=== PATIENT | male | born 1940 | race Caucasian/White ===

== ENCOUNTER → 2019-02-09 14:17 | Outpatient (CLI) | payer MEDICARE, OTHER, SELFPAY ==
[2019-02-09 15:42] LABS: PSA,Total - Annual Screen 0.08 ng/mL (0.00-4.00)
== END ==
PROVIDERS: Family Provider Family Medicine; PCP Family Medicine; Referring Provider Urology; Visit Provider Urology
DX: Z12.5 Encounter for screening for malignant neoplasm of prostate (principal)
CPT/HCPCS: 36415; 84153; G0103

== ENCOUNTER 2021-09-01 09:22 | Outpatient (CLI) | payer MEDICARE, OTHER, SELFPAY ==
--- NOTE | 2021-09-01 09:26 | RAD_ITS ---
STUDY: X-RAY CHEST REASON FOR EXAM: Male, 80 years old. COUGH TECHNIQUE: PA and lateral views of the chest. COMPARISON: None. FINDINGS: There is hyperinflation of the lungs consistent with chronic obstructive lung disease (COPD). There is no demonstrated pleural abnormality. Normal size heart. Normal mediastinum and sarath. Normal visualized pulmonary arteries. Normal visualized aortic arch and descending thoracic aorta. Normal visualized thoracic spine. Normal visualized ribs, clavicles, and shoulders. There is no demonstrated abnormality of the visualized soft tissue structures of the upper abdomen. RAD/Chest PA and Lateral IMPRESSION: Emphysema without pneumonia or atelectasis. Electronically Signed: Jose Merino MD at 17:14 EDT ,
== END 2021-09-01 23:59 | disposition home or self-care (01) ==
LOC: MTRAD 09:24
PROVIDERS: PCP Family Medicine; Referring Provider Family Medicine; Visit Provider Family Medicine
DX: J43.9 Emphysema, unspecified (principal)
CPT/HCPCS: 71046

== ENCOUNTER 2021-09-05 10:26 | Outpatient (CLI) | payer MEDICARE, OTHER, SELFPAY ==
--- NOTE | 2021-09-06 08:11 | PFT ---
INTRODUCTION: The patient is a 80-year-old male that presents for pulmonary function studies secondary to a diagnosis of chronic cough. Respiratory therapy reported good patient effort. Bronchodilators were used during testing. INTERPRETATION: Forced expiration spirometry demonstrates no evidence of a large airways obstructive ventilatory defect. There was no significant response to aerosolized bronchodilators. Spirograms are of good quality and plateau normally. Body plethysmography was performed and revealed an elevated TLC and RV. Diffusing capacity by single breath CO was within normal limits. IMPRESSION: Grossly normal pulmonary function studies.
== END 2021-09-05 23:59 | disposition home or self-care (01) ==
LOC: PSN 10:27
PROVIDERS: PCP Family Medicine; Referring Provider Family Medicine; Visit Provider Family Medicine
DX: R05.3 Chronic cough (principal)
CPT/HCPCS: 94060; 94726; 94729

== ENCOUNTER → 2022-10-02 | Outpatient (CLI) | payer MEDICARE, OTHER, SELFPAY | END | disposition home or self-care (01) | LOC: LAB 14:44 | PROVIDERS: PCP Family Medicine; Referring Provider Urology; Visit Provider Urology | DX: Z12.5 Encounter for screening for malignant neoplasm of prostate (principal) | CPT/HCPCS: 36415; 84153; G0103 ==

== ENCOUNTER 2024-05-17 15:17 | Emergency (ER) | payer MEDICARE, OTHER, SELFPAY ==
[2024-05-17] VITALS (7 sets, daily range): BP systolic 113–180; BP diastolic 57–113; PULSE 64–73; RESP 15–20; TEMP 36.4–36.6; O2SAT 94–98; BMI 29.6
--- NOTE | 2024-05-17 15:24 | ED.VIS.CHEST ---
HPI History of Present Illness Chief Complaint: Chest Pain Informant: patient Onset/Context/Timing Onset: Hours (1) Activity at onset: sudden Timing: Continuous Quality: Positive for Aching and Pressure Location: Substernal Worsened By: - (Sitting up) Relieved By: - (Laying down) Associated Symptoms: Positive for Acid Reflux; Negative for Nausea, Vomiting, Diaphoresis, Dyspnea, Cough, Fever, Lightheadedness or Palpitations Narrative Narrative: Patient presents with chest pain that began approximate 1 hour prior to arrival. Patient describes it as aching and pressure. Patient states he was walking down some stairs when the pain began. Patient states it has been constant. Patient states it is worse when he sits up and better when he lays down. Patient admits to some acid reflux symptoms. Patient denies any shortness of breath or cough. Patient denies any nausea, vomiting, diaphoresis. Patient states he just finished a course of prednisone for a rash. CVD Risk Factors: Positive for Hypercholesterolemia; Negative for Hypertension, Diabetes, Family History 1' </=55 or Smoking PE Risk Factors: Negative for Recent Travel/Surgery, Recent Immobilization, Prior DVT or PE, Cancer or OCP + Smoking + >/=35 [facility] Medical History (Updated 05/17/24 @ 18:[address] Ant Sharma, ) BPH (benign prostatic hyperplasia) Hypercholesteremia Home Medications ?Medication ?Instructions ?Recorded ?Last Taken ?Type atorvastatin 20 mg tablet 20 mg PO QHS cholesterol 05/17/24 Unknown History finasteride 5 mg tablet 5 mg PO DAILY 05/17/24 Unknown History omeprazole 20 mg capsule,delayed 20 mg PO DAILY #30 CAPSULES 05/17/24 Unknown Rx release oxybutynin chloride 10 mg 10 mg PO DAILY 05/17/24 Unknown History tablet,extended release 24 hr Allergy/AdvReac Type Severity Reaction Status Date / Time No Known Allergies Allergy Verified 05/17/24 15:17 Social History Smoking Status: Former smoker ROS ROS ED Constitutional Constitutional ED: Denies chills or fever(s) Eyes Eyes: Denies blurry vision or change in vision ENT ENT ED: Reports rhinorrhea; Denies sore throat Cardiovascular Cardiovascular: Reports as per HPI and chest pain; Denies palpitations Respiratory/Chest Respiratory/Chest: Denies cough or dyspnea Gastrointestinal Gastrointestinal: Denies nausea or vomiting Genitourinary Genitourinary ED: Denies dysuria or hematuria Musculoskeletal Musculoskeletal: Denies back pain or neck pain Integumentary Reports rash; Denies abscess Neurologic Neurologic: Denies headache(s) or weakness Allergic/Immunologic Allergic/Immunologic ED: Denies mouth swelling or urticaria EXAM Physical Exam Const Vital Signs: 05/17/24 15:18 05/17/24 15:33 05/17/24 15:48 Temperature 97.6 F L Temperature Source Oral Pulse Rate 72 Respiratory Rate 18 Respiratory Effort Normal Blood Pressure 180/113 H Blood Pressure Mean 135 Pulse Ox 95 96 Oxygen Delivery Method Room Air Room Air 05/17/24 15:49 05/17/24 16:11 05/17/24 16:59 Temperature Temperature Source Pulse Rate 73 69 69 Respiratory Rate 16 20 H Respiratory Effort Blood Pressure 164/94 H 144/83 H 114/57 L Blood Pressure Mean 103 76 Pulse Ox 94 95 Oxygen Delivery Method Room Air Room Air 05/17/24 18:00 Temperature Temperature Source Pulse Rate 69 Respiratory Rate Respiratory Effort Blood Pressure 131/81 H Blood Pressure Mean 97 Pulse Ox Oxygen Delivery Method Positive well nourished and well developed General Appearance ED: well developed and NAD HEENT Reports moist mucous membranes Neck supple and no JVD Resp normal respiratory effort and clear to auscultation bilaterally Cardio regular rate and regular rhythm GI soft to palpation, non-tender and non-distended Extremity normal to inspection General Extremety ED: Negative for edema or tenderness General Extremity: Negative for edema Neuro oriented x3, CN's II-XII intact bilaterally and no sensory deficits noted Sensorium / Orientation: awake Motor Exam: strength 5/5 throughout Psych mental status grossly normal Heart Score History: Slightly/Non-Suspicious ECG: Normal Age: >/= 65 years Risk Factors: 1 or 2 Risk Factors Troponin: </= Normal Limit Score: 3 MDM MDM MDM Narrative Medical decision making narrative: Differential diagnosis includes cardiac dysrhythmia, cardiac ischemia, pneumonia, pneumothorax, electrolyte abnormality, gastroesophageal reflux disease, musculoskeletal pain, and anxiety. EKG will be obtained to assess for cardiac dysrhythmia and cardiac ischemia. Chest x-ray will be obtained to assess for pneumonia and pneumothorax. CBC will be obtained to assess for leukocytosis or anemia. Basic metabolic profile will be obtained to assess for electrolyte abnormality and renal function. High-sensitivity troponin will be obtained to assess for cardiac ischemia. 2-hour repeat high-sensitivity troponin will be obtained to assess for ongoing cardiac ischemia. Lab Data Attestation: I reviewed the patient's lab results. Lab results narrative: CBC was reviewed. There is a slight leukocytosis of 11.9. The remainder is within normal limits. Basic metabolic profile was reviewed. BUN was slightly elevated at 20. Glucose was slightly elevated at 112. The remainder is within normal limits. Initial high-sensitivity troponin was reviewed and was normal at 8. 2-hour repeat high-sensitivity troponin was reviewed and was normal at 13. Labs: Laboratory Results - last 24 hr 05/17/24 05/17/24 15:40 17:44 WBC 11.9 H RBC 4.49 L Hgb 14.1 Hct 42.8 MCV 95.3 H MCH 31.4 MCHC 32.9 RDW Std Deviation 44.8 H RDW Coeff of [place] 12.8 Plt Count 414 MPV 9.6 Immature Gran % (Auto) 0.800 Neut % (Auto) 63.6 Lymph % (Auto) 24.7 [place] % (Auto) 8.4 Eos % (Auto) 2.0 Baso % (Auto) 0.5 Absolute Neuts (auto) 7.6 Absolute Lymphs (auto) 2.94 Nucleated RBC % 0 Sodium 138 Potassium 4.5 Chloride 105 Carbon Dioxide 27.0 Anion Gap 6 BUN 20 H Creatinine 1.00 Estim Creat Clear Calc 66.59 Est GFR (MDRD) Af Amer 92 Est GFR (MDRD) Non-Af 76 BUN/Creatinine Ratio 20.0 Glucose 112 H Calcium 9.2 Troponin I High Sens 8 13 Radiography Chest X-Ray - ED: 1 View, Read by ED Physician, Read by Radiologist and No Acute Disease Diagnostic Testing: Clinical Impression(s) from Imaging Studies Chest X-Ray 05/17/24 15:50 IMPRESSION: Normal x-ray examination of the chest. Electronically Signed: Abram Herndon MD at 16:23 EST , Portable 1 view chest x-ray was obtained. On my independent interpretation, lung gatica are clear. There is normal cardiac silhouette. Bony thorax is normal. There is no acute process noted. Radiologist also interpreted the x-ray and agrees. EKG Initial EKG: Attestation: I personally reviewed and interpreted this EKG as follows: Interpretation: Sinus Rhythm (73) and No Acute Injury Pattern Comments: EKG was obtained. On my independent interpretation, it showed a normal sinus rhythm with a rate of 73. NC interval, QRS interval, and QTc intervals were all normal. [place] was normal. There are no acute ST or T wave changes. Prior EKG tracings: not available for review Prior: No Prior Treatment and Re-Evaluation :: Patient was given aspirin and sublingual nitroglycerin here. Patient states his pain got worse after 1 sublingual nitroglycerin tablet. Patient was given a GI cocktail. Patient states this helped and he has not had any pain since taking this. Patient was advised that his symptoms could be from gastroesophageal reflux disease. Patient has a HEART score of 3. Patient was advised that this is low risk for acute cardiac event. Patient was given a prescription for omeprazole. Patient was instructed to follow-up with his primary care physician in 5 to 7 days. Patient was instructed return if worse in any way. Patient understood and was agreeable with the plan. All questions were answered. Discharge Plan Triage Chief Complaint: Chest Pain ED Provider: Ant Sharma Dx/Rx/DC Orders Clinical Impression: Chest pain, Elevated blood pressure reading without diagnosis of hypertension Instructions: ED Chest Pain, Uncertain Cause Prescriptions: New omeprazole 20 mg capsule,delayed release(DR/EC) 20 mg PO DAILY Qty: 30 0RF No Action atorvastatin 20 mg tablet 20 mg PO QHS oxybutynin chloride 10 mg tablet extended release 24hr 10 mg PO DAILY finasteride 5 mg tablet 5 mg PO DAILY Primary Care Provider: Blane Mckeon Referrals: Blane Mckeon MD [Primary Care Provider] - 3-5 Days Print Language: Filipino Disposition Disposition: Home, Self Care
--- NOTE | 2024-05-17 15:38 | EKG12_ITS ---
Test Reason : CP Blood Pressure : */* mmHG Vent. Rate : 73 BPM Atrial Rate : 73 BPM P-R Int : 162 ms QRS Dur : 88 ms QT Int : 378 ms P-R-T Axes : 56 13 49 degrees QTcB Int : 416 ms Normal sinus rhythm Normal ECG Confirmed by JANICE VICTORIA, MIKE ([id number]), fan mail editor SONYA SALINAS ([id number]) on 05/18/2024 11:06:07 AM Referred By: Confirmed By: MIKE CAMACHO MD
[2024-05-17] MEDS: Aspirin 81 MG TAB.CHEW 324 MG PO (15:46)
[2024-05-17 15:48] LABS: Absolute Lymphocyte Count 2.94 X10^3/uL (0.83-4.51); Absolute Neutrophil Count 7.6 X10^3/uL (2.0-7.7); Basophil# 0.06 X10^3/uL; Basophil% 0.5 % (0-1); Eosinophil# 0.24 X10^3/uL; Hematocrit 42.8 % (40-54); Hemoglobin 14.1 g/dL (13.0-16.5); Lymphocyte # 2.94 X10^3/ul (0.83-4.51); Lymphocyte % 24.7 % (19-41); Mean Corp Hgb Conc 32.9 g/dL (32-36); Mean Corpuscular Hgb 31.4 pg (27.0-32.0); Mean Corpuscular Volume 95.3 fL (80-94); Mean Platelet Vol. 9.6 fl (6.2-12.0); Monocyte% 8.4 % (0-10); NRBC Flagged by Analyzer 0 % (0-5); Neutrophil # 7.55 X10^3/uL (2.7-7.7); Neutrophil % 63.6 % (47-70); Platelet Count 414 K/mm3 (150-450); RBC Distribution Width CV 12.8 % (11.6-14.6); RBC Distribution Width SD 44.8 fl (35.1-43.9); Red Blood Count 4.49 M/mm3 (4.6-6.2); White Blood Count 11.9 K/mm3 (4.4-11.0)
[2024-05-17] MEDS: Nitroglycerin SL (ED/IMG/CATH) 0.4 MG TABLET SL (15:49)
--- NOTE | 2024-05-17 15:50 | RAD_ITS ---
STUDY: X-RAY CHEST REASON FOR EXAM: Male, 83 years old. chest pain TECHNIQUE: Single frontal view of the chest. COMPARISON: September 01, 2021 FINDINGS: The lungs are clear and expanded. There is no demonstrated pleural abnormality. Normal size heart. Normal mediastinum and sarath. Normal visualized pulmonary arteries. Normal visualized aortic arch and descending thoracic aorta. Normal visualized thoracic spine. Normal visualized ribs, clavicles, and shoulders. There is no demonstrated abnormality of the visualized soft tissue structures of the upper abdomen. RAD/Chest 1 View (Portable) IMPRESSION: Normal x-ray examination of the chest. Electronically Signed: Abram Herndon MD at 16:23 EST ,
[2024-05-17 16:11] LABS: Anion Gap 6 (5-15); BUN 20 mg/dL (7-18); Calcium,Total 9.2 mg/dL (8.5-10.1); Chloride 105 mmol/L (98-107); EST Glomerular Filtration Rate 76 mL/min (>60); Est Glom Filt Rate - Afr Amer 92 mL/min (>60); Estimated Creatinine Clearance 66.59 ml/min; Glucose 112 mg/dL (74-106); Potassium 4.5 mmol/L (3.5-5.1); Sodium Level 138 mmol/L (136-145); Troponin-I HS (w/2H Reflex) 8 pg/mL (3.0-78.0)
[2024-05-17] MEDS: Mag Hydrox/Al Hydrox/Simeth 30 ML UDC PO (16:36)
[2024-05-17] MEDS: Lidocaine 2% Viscous15 ML UDC 15 ML PO (16:36)
[2024-05-17 17:44] LABS: Reflex Troponin-HS? (from REC) Y
[2024-05-17 18:13] LABS: Troponin-I HS 13 pg/mL (3.0-78.0)
== END 2024-05-17 18:58 | disposition home or self-care (01) ==
PROVIDERS: Emergency Provider Emergency Medicine; PCP Family Medicine; Visit Provider Emergency Medicine
DX: R07.9 Chest pain, unspecified (principal); R03.0 Elevated blood-pressure reading, without diagnosis of hypertension; E78.00 Pure hypercholesterolemia, unspecified; Z79.899 Other long term (current) drug therapy; Z87.891 Personal history of nicotine dependence
CPT/HCPCS: 71045; 80048; 84484; 85025; 93005; 99284; A4216